=== PATIENT | female | born 1975 | race Caucasian/White ===

== ENCOUNTER 2023-11-24 07:56 | Outpatient (OUT) | payer BC, OTHER, SELFPAY ==
--- NOTE | 2023-11-24 07:55 | NM_ITS ---
The [address] [address] Patient Name: TREE ENRIQUEZ MRN: [id number] date: 1975 Sex: F [place]igned [place] Location: [place] Current [place] Location[place] Accession/Order Number: [id number] Exam Date: 11/24/2023 07:55 Report Date: 11/24/2023 13:17 At the request of: WILDER LANIER Procedure: [place] gastric emptying study EXAMINATION: [place] gastric emptying study HISTORY: ABDOMINAL PAIN COMPARISON: No relevant comparison available. TECHNIQUE: The patient ingested 1.0 mCi Tc-99m sulfur colloid in eggs with toast. Anterior and posterior images were obtained at one minute intervals. Data were acquired for plotting and determination of gastric emptying. FINDINGS: STOMACH: Normal appearance. 30 minutes: 92% remaining within stomach. 1 hour: 80% remaining within stomach. 2 hour: 46% remaining within stomach. 3 hour: 25% remaining within stomach. 4 hour: 13% remaining within stomach. [place] gastric emptying study IMPRESSION: Grade 1 (mild) delayed gastric emptyin-20% retention at 4 hours Electronically authenticated by: OPAL HOLGUIN Date: 11/24/2023 13:17
== END 2023-11-24 07:57 | disposition home or self-care (01) ==
LOC: NM 07:56
PROVIDERS: PCP Family Medicine
DX: R10.9 Unspecified abdominal pain (principal)
CPT/HCPCS: 78264; A9541